=== PATIENT | male | born 1980 | race African-American/Black ===

== ENCOUNTER 2022-05-19 05:05 | Emergency (ER) | payer MEDICAID ==
[~2022-05-19] VITALS: Ht 182.9 cm; Wt 80.0 kg
[2022-05-19] MEDS ORDERED: ALBUTEROL (0.083%) 2.5MG/3ML NEB HHN ONE (07:30)
[2022-05-19] MEDS ORDERED: PREDNISONE 20MG TABLET PO ONE (07:30)
[2022-05-19] MEDS ORDERED: DIPHENHYDRAMINE 50MG/ML VIAL IM PRN (08:00)
[2022-05-19] MEDS ORDERED: ZIPRASIDONE MESYLATE 20MG/VIAL IM ONE (08:00)
[2022-05-19] MEDS ORDERED: SODIUM CHLORIDE 0.9% 1000ML BAG (SEPSIS BOLUS) IV ONE (10:15)
[2022-05-19 11:30] VITALS: BP 136/74
== END 2022-05-19 13:13 ==
LOC: ER 05:05
DX: R46.2 Strange and inexplicable behavior (principal); R06.02 Shortness of breath; J45.909 Unspecified asthma, uncomplicated
CPT/HCPCS: 94640; 99283; J1200; J3486; J7030; J7512; Z7610